=== PATIENT | female | born 1990 | race Caucasian/White ===

== ENCOUNTER 2017-06-13 23:21 | Inpatient (IN) | payer OTHER, MEDICAID ==
[~2017-06-13] VITALS: Ht 165.1 cm; Wt 125.6 kg
[2017-06-13 23:21] VITALS: BP_SYST 147
[2017-06-13] MEDS ORDERED: NACL 0.9% 1,000 ML IV ONE (23:47)
[2017-06-13 23:59] LABS: BILIRUBIN,URINE 2+ (NEGATIVE); BLOOD, URINE NEGATIVE (NEGATIVE); CLARITY/URINE SL HAZY (CLEAR); GLUCOSE,URINE NEGATIVE (NEGATIVE); KETONES,URINE 2+ (NEGATIVE); LEUKOCYTE ESTERASE ,URINE NEGATIVE (NEGATIVE); NITRITE, URINE NEGATIVE (NEGATIVE); PROTEIN URINE 1+ (NEGATIVE)
[2017-06-14] MEDS ORDERED: HYDROmorphone 1 MG INJ. 1 MG/ML AMPUL IVP ONE
[2017-06-14 00:06] LABS: COLOR,URINE YELLOW (YELLOW)
[2017-06-14 00:09] LABS: BACTERIA,URINE FEW /HPF (None Seen); MUCUS,URINE 2+ /LPF (None Seen); RBC,URINE 0-3 /HPF (0-3); WBC,URINE 0-3 /HPF (0-3)
[2017-06-14 00:34] LABS: BASOPHILS # (AUTO) 0.2 K/uL (0.0-0.2); BASOPHILS % (AUTO) 1.3 % (0.0-2.0); HEMATOCRIT 41.3 % (36-48); HEMOGLOBIN 13.5 g/dL (12.0-16.0); LYMPHOCYTES # (AUTO) 1.4 K/uL (1.0-5.5); LYMPHOCYTES % (AUTO) 8.2 % (20.5-51.5); MEAN CORPUSCULAR HEMOGLOBIN 27 pg (27-31); MEAN CORPUSCULAR HGB CONC 33 % (32-36); MEAN CORPUSCULAR VOLUME 83 fL (79.0-98.0); MONOCYTES # (AUTO) 0.7 K/uL (0.0-1.0); MONOCYTES % (AUTO) 4.2 % (1.7-9.3); NEUTROPHILS # (AUTO) 15.2 K/uL (1.8-7.7); NEUTROPHILS % (AUTO) 86.3 % (40.0-70.0); PLATELET COUNT (AUTO) 251 K/uL (130-430); RED BLOOD CELL COUNT(AUTO) 4.99 MIL/uL (4.2-6.2); WHITE BLOOD COUNT (AUTO) 17.5 K/uL (4.8-10.8)
[2017-06-14 00:37] LABS: CREATININE 0.83 mg/dL (0.55-1.30); POTASSIUM 3.1 mmol/L (3.5-5.1)
[2017-06-14 00:41] LABS: PROTHROMBIN TIME 11.2 SECS (9.5-12.5)
[2017-06-14 00:57] LABS: ALBUMIN 3.6 g/dL (3.4-4.8); TOTAL BILIRUBIN 2.7 mg/dL (0.0-1.0); TOTAL PROTEIN, SERUM 8.3 g/dL (6.4-8.3)
[2017-06-14] MEDS ORDERED: SERT50TA12 PO (01:23)
[2017-06-14] MEDS ORDERED: DULO20CA PO (01:23)
[2017-06-14] MEDS ORDERED: BUPR75TA20 PO (01:23)
[2017-06-14] MEDS ORDERED: ACETAMINOPHEN 650 MG SUPP.RECT RC PRN (01:45)
[2017-06-14 02:00] VITALS: BP_SYST 135
[2017-06-14 02:23] VITALS: BP_SYST 137
[2017-06-14] MEDS: HYDROmorphone 1 MG INJ. 1 MG/ML AMPUL IVP PRN ×4 (03:16→20:03)
[2017-06-14] MEDS: KCL 20 mEq in NS 1000 mL 1,000 ML IV SCH ×3 (03:17→17:45)
[2017-06-14] MEDS: ONDANSETRON HCL 4 MG/2 ML VIAL IVP PRN ×2 (03:20→20:29)
[2017-06-14 06:41] LABS: CALCIUM 7.2 mg/dL (8.4-11.0); CREATININE 0.7 mg/dL (0.55-1.30); POTASSIUM 3.4 mmol/L (3.5-5.1)
[2017-06-14 06:46] LABS: ALBUMIN 3.3 g/dL (3.4-4.8); TOTAL BILIRUBIN 2.4 mg/dL (0.0-1.0); TOTAL PROTEIN, SERUM 7.7 g/dL (6.4-8.3)
[2017-06-14] MEDS ORDERED: POTASSIUM CHLORIDE 30 MEQ in NS 250 ML IV ONE (09:00)
[2017-06-14] MEDS: PANTOPRAZOLE SODIUM 40 MG/VIAL (PROTONIX) IVP SCH (09:36)
[2017-06-14 12:26] VITALS: BP_SYST 153
[2017-06-14] MEDS ORDERED: LR 1,000 ML IV.SOLN IV ONE (12:45)
[2017-06-14] MEDS ORDERED: MIDAZOLAM HCL 5 MG/5 ML VIAL IVP ONE (12:45)
[2017-06-14] MEDS ORDERED: GLYCOPYRROLATE 0.2 MG/ML VIAL IJ ONE (12:45)
[2017-06-14] MEDS ORDERED: BUPIVACAINE /EPINEPHRINE/PF 0.5% 30 ML VIAL INJ ONE (12:45)
[2017-06-14] MEDS ORDERED: PROPOFOL 200MG/ 20ML VIAL (DIPRIVAN) IV ONE (12:45)
[2017-06-14] MEDS ORDERED: SUCCINYLCHOLINE CHLORIDE 20 MG/ML(QUELICIN) IVP ONE (12:45)
[2017-06-14] MEDS ORDERED: NS IRRIG SOLN 1000 ML IR ONE (12:45)
[2017-06-14] MEDS ORDERED: NS 1000 ML BAG IV ONE (12:45)
[2017-06-14] MEDS ORDERED: ONDANSETRON HCL 4 MG/2 ML VIAL IVP ONE ×2 (12:45)
[2017-06-14] MEDS ORDERED: fentaNYL CITRATE 250 MCG/5 ML AMP IV ONE (12:45)
[2017-06-14] MEDS ORDERED: SEVOFLURANE 15 MIN GAS INH ONE (12:45)
[2017-06-14] MEDS ORDERED: BUPR-120 PO (13:35)
[2017-06-14] MEDS ORDERED: SERT-131 PO (13:35)
[2017-06-14] MEDS ORDERED: LOXA10CA PO (13:35)
[2017-06-14 14:47] LABS: CHOLESTEROL 249 mg/dL (<200); HDL CHOLESTEROL 55 mg/dL (>55); LDL CHOLESTEROL 168 mg/dL (<100); TRIGLYCERIDES 64 mg/dL (30-150)
[2017-06-14 16:46] VITALS: BP_SYST 146
[2017-06-14] MEDS: KCL 20 mEq in D5/0.45NS 1000mL 1,000 ML IV SCH (20:01)
[2017-06-14 20:03] VITALS: BP_SYST 115
[2017-06-14] MEDS ORDERED: cefTRIAXone 1 GM IVPB PREMIX 50 ML IV ONE ×2 (22:00→22:09)
[2017-06-15 00:05] VITALS: BP_SYST 135
[2017-06-15 01:52] VITALS: BP_SYST 135
[2017-06-15] MEDS: LORazepam 2 MG/ML VIAL IVP PRN (03:03)
[2017-06-15 03:09] VITALS: BP_SYST 134
[2017-06-15 05:26] LABS: HCG,QUAL RESULT NEGATIVE (NEGATIVE)
[2017-06-15] MEDS: HYDROmorphone 1 MG INJ. 1 MG/ML AMPUL IVP PRN ×3 (07:00→20:32)
[2017-06-15 07:13] LABS: ALBUMIN 2.7 g/dL (3.4-4.8); BILIRUBIN,DIRECT 0.6 mg/dL (0.0-0.3); CALCIUM 7.1 mg/dL (8.4-11.0); CREATININE 0.72 mg/dL (0.55-1.30); POTASSIUM 3.5 mmol/L (3.5-5.1); TOTAL PROTEIN, SERUM 7.2 g/dL (6.4-8.3)
[2017-06-15 07:45] LABS: HEMOGLOBIN 12.3 g/dL (12.0-16.0); MEAN CORPUSCULAR HEMOGLOBIN 28 pg (27-31); MEAN CORPUSCULAR HGB CONC 33 % (32-36); MEAN CORPUSCULAR VOLUME 83 fL (79.0-98.0); PLATELET COUNT (AUTO) 213 K/uL (130-430); RED BLOOD CELL COUNT(AUTO) 4.46 MIL/uL (4.2-6.2); RED CELL DISTRIBUTION WIDTH 14.5 % (9.0-15.0); WHITE BLOOD COUNT (AUTO) 27.9 K/uL (4.8-10.8)
[2017-06-15] MEDS: PANTOPRAZOLE SODIUM 40 MG/VIAL (PROTONIX) IVP SCH (09:03)
[2017-06-15] MEDS: ONDANSETRON HCL 4 MG/2 ML VIAL IVP PRN ×2 (09:03→20:31)
[2017-06-15 09:16] LABS: ATYPICAL LYMPHOCYTES % 6 % (0-0); BAND % (MANUAL) 19 % (0-6); BASOPHILS % (MANUAL) 0 % (0-2); EOSINOPHILS % (MANUAL) 0 % (0-7); LYMPHOCYTES % (MANUAL) 5 % (20-46); METAMYELOCYTES % 1 % (0-0); MONOCYTES % (MANUAL) 4 % (0-11)
[2017-06-15] MEDS: KCL 20 mEq in NS 1000 mL 1,000 ML IV SCH ×4 (09:45→19:33)
[2017-06-15 11:37] VITALS: BP_SYST 130
[2017-06-15 16:09] VITALS: BP_SYST 140
[2017-06-15] MEDS: KCL 20 mEq in D5/0.45NS 1000mL 1,000 ML IV SCH ×2 (18:37→18:44)
[2017-06-15 19:50] VITALS: BP_SYST 137
[2017-06-15] MEDS: cefTRIAXone 1 GM in D5W 50 ML IV SCH (21:39)
[2017-06-16] MEDS: HYDROmorphone 1 MG INJ. 1 MG/ML AMPUL IVP PRN ×5 (00:35→23:38)
[2017-06-16] MEDS: ONDANSETRON HCL 4 MG/2 ML VIAL IVP PRN (03:04)
[2017-06-16] MEDS: KCL 20 mEq in NS 1000 mL 1,000 ML IV SCH ×2 (06:32→16:50)
[2017-06-16 06:56] LABS: BASOPHILS # (AUTO) 0.6 K/uL (0.0-0.2); BASOPHILS % (AUTO) 2.5 % (0.0-2.0); EOSINOPHILS % (AUTO) 0.1 % (0.0-4.0); HEMATOCRIT 33.6 % (36-48); HEMOGLOBIN 11.3 g/dL (12.0-16.0); LYMPHOCYTES # (AUTO) 1.3 K/uL (1.0-5.5); LYMPHOCYTES % (AUTO) 5.2 % (20.5-51.5); MEAN CORPUSCULAR HEMOGLOBIN 28 pg (27-31); MEAN CORPUSCULAR HGB CONC 34 % (32-36); MEAN CORPUSCULAR VOLUME 84 fL (79.0-98.0); MONOCYTES # (AUTO) 1.2 K/uL (0.0-1.0); MONOCYTES % (AUTO) 4.9 % (1.7-9.3); NEUTROPHILS # (AUTO) 22.3 K/uL (1.8-7.7); NEUTROPHILS % (AUTO) 87.3 % (40.0-70.0); PLATELET COUNT (AUTO) 186 K/uL (130-430); RED BLOOD CELL COUNT(AUTO) 4.01 MIL/uL (4.2-6.2); RED CELL DISTRIBUTION WIDTH 14.8 % (9.0-15.0); WHITE BLOOD COUNT (AUTO) 25.4 K/uL (4.8-10.8)
[2017-06-16 07:13] LABS: ALBUMIN 2.4 g/dL (3.4-4.8); CREATININE 0.67 mg/dL (0.55-1.30); POTASSIUM 3.5 mmol/L (3.5-5.1); TOTAL BILIRUBIN 0.6 mg/dL (0.0-1.0); TOTAL PROTEIN, SERUM 6.8 g/dL (6.4-8.3)
[2017-06-16 07:37] LABS: CALCIUM 6.9 mg/dL (8.4-11.0)
[2017-06-16 08:00] VITALS: BP_SYST 136
[2017-06-16] MEDS: PANTOPRAZOLE SODIUM 40 MG/VIAL (PROTONIX) IVP SCH (08:55)
[2017-06-16 11:55] VITALS: BP_SYST 120
[2017-06-16 16:00] VITALS: BP_SYST 125
[2017-06-16 20:00] VITALS: BP_SYST 134
[2017-06-16] MEDS: KCL 20 mEq in D5/0.45NS 1000mL 1,000 ML IV SCH (20:42)
[2017-06-16] MEDS: cefTRIAXone 1 GM in D5W 50 ML IV SCH (20:43)
[2017-06-16] MEDS: LORazepam 2 MG/ML VIAL IVP PRN (21:41)
[2017-06-17] VITALS (7 sets, daily range): BP systolic 130–150
[2017-06-17] MEDS: KCL 20 mEq in NS 1000 mL 1,000 ML IV SCH (03:04)
[2017-06-17 07:14] LABS: BASOPHILS # (AUTO) 0.1 K/uL (0.0-0.2); BASOPHILS % (AUTO) 0.4 % (0.0-2.0); EOSINOPHILS # (AUTO) 0.1 K/uL (0.0-0.4); EOSINOPHILS % (AUTO) 0.5 % (0.0-4.0); HEMATOCRIT 32.1 % (36-48); HEMOGLOBIN 10.7 g/dL (12.0-16.0); LYMPHOCYTES # (AUTO) 1.3 K/uL (1.0-5.5); LYMPHOCYTES % (AUTO) 6.3 % (20.5-51.5); MEAN CORPUSCULAR HEMOGLOBIN 28 pg (27-31); MEAN CORPUSCULAR HGB CONC 33 % (32-36); MEAN CORPUSCULAR VOLUME 83 fL (79.0-98.0); MONOCYTES # (AUTO) 1.2 K/uL (0.0-1.0); NEUTROPHILS # (AUTO) 17.7 K/uL (1.8-7.7); NEUTROPHILS % (AUTO) 86.8 % (40.0-70.0); PLATELET COUNT (AUTO) 184 K/uL (130-430); RED BLOOD CELL COUNT(AUTO) 3.85 MIL/uL (4.2-6.2); RED CELL DISTRIBUTION WIDTH 14.9 % (9.0-15.0); WHITE BLOOD COUNT (AUTO) 20.4 K/uL (4.8-10.8)
[2017-06-17 08:01] LABS: ALBUMIN 2.3 g/dL (3.4-4.8); BILIRUBIN,DIRECT 0.3 mg/dL (0.0-0.3); TOTAL BILIRUBIN 0.5 mg/dL (0.0-1.0); TOTAL PROTEIN, SERUM 6.8 g/dL (6.4-8.3)
[2017-06-17] MEDS: PANTOPRAZOLE SODIUM 40 MG/VIAL (PROTONIX) IVP SCH (08:20)
[2017-06-17] MEDS ORDERED: LR 1,000 ML IV SCH (13:26)
[2017-06-17] MEDS ORDERED: METOCLOPRAMIDE HCL 10 MG/2 ML VIAL IVP PRN (13:30)
[2017-06-17] MEDS ORDERED: MORPHINE 2 MG/ML INJ. SYRINGE IVP PRN ×3 (13:30)
[2017-06-17] MEDS: MORPHINE 4 MG/ML INJ. SYRINGE ONE ×2 (14:30→14:43)
[2017-06-17] MEDS: LR 1,000 ML IV SCH (20:52)
[2017-06-17] MEDS: cefTRIAXone 1 GM in D5W 50 ML IV SCH (20:52)
[2017-06-18 00:16] VITALS: BP_SYST 137
[2017-06-18 04:23] VITALS: BP_SYST 148
[2017-06-18] MEDS: LR 1,000 ML IV SCH ×2 (05:53→15:48)
[2017-06-18 07:05] LABS: BASOPHILS # (AUTO) 0.1 K/uL (0.0-0.2); BASOPHILS % (AUTO) 0.3 % (0.0-2.0); EOSINOPHILS # (AUTO) 0.1 K/uL (0.0-0.4); EOSINOPHILS % (AUTO) 0.5 % (0.0-4.0); HEMATOCRIT 32.3 % (36-48); HEMOGLOBIN 10.8 g/dL (12.0-16.0); LYMPHOCYTES # (AUTO) 1.3 K/uL (1.0-5.5); MEAN CORPUSCULAR HEMOGLOBIN 28 pg (27-31); MEAN CORPUSCULAR HGB CONC 34 % (32-36); MEAN CORPUSCULAR VOLUME 84 fL (79.0-98.0); MONOCYTES # (AUTO) 1.2 K/uL (0.0-1.0); MONOCYTES % (AUTO) 6.4 % (1.7-9.3); NEUTROPHILS # (AUTO) 15.5 K/uL (1.8-7.7); NEUTROPHILS % (AUTO) 85.8 % (40.0-70.0); PLATELET COUNT (AUTO) 214 K/uL (130-430); RED BLOOD CELL COUNT(AUTO) 3.86 MIL/uL (4.2-6.2); RED CELL DISTRIBUTION WIDTH 14.9 % (9.0-15.0); WHITE BLOOD COUNT (AUTO) 18.2 K/uL (4.8-10.8)
[2017-06-18 07:31] LABS: ALBUMIN 2.2 g/dL (3.4-4.8); CALCIUM 7.6 mg/dL (8.4-11.0); CREATININE 0.58 mg/dL (0.55-1.30); POTASSIUM 3.6 mmol/L (3.5-5.1); TOTAL BILIRUBIN 0.6 mg/dL (0.0-1.0); TOTAL PROTEIN, SERUM 6.7 g/dL (6.4-8.3)
[2017-06-18 09:23] VITALS: BP_SYST 118
[2017-06-18] MEDS: PANTOPRAZOLE SODIUM 40 MG/VIAL (PROTONIX) IVP SCH (09:23)
[2017-06-18 12:14] VITALS: BP_SYST 130
[2017-06-18] MEDS ORDERED: IBUPROFEN 600 MG TABLET PO PRN (14:00)
[2017-06-18 16:41] VITALS: BP_SYST 136
[2017-06-18 19:30] VITALS: BP_SYST 126; BP_SYST 136
[2017-06-18] MEDS: cefTRIAXone 1 GM in D5W 50 ML IV SCH (20:49)
[2017-06-19 00:03] VITALS: BP_SYST 129
[2017-06-19] MEDS: LR 1,000 ML IV SCH ×2 (00:30→09:43)
[2017-06-19 07:08] LABS: HEMOGLOBIN 10.6 g/dL (12.0-16.0); RED CELL DISTRIBUTION WIDTH 14.6 % (9.0-15.0)
[2017-06-19 07:21] LABS: HEMATOCRIT 31.3 % (36-48); MEAN CORPUSCULAR HEMOGLOBIN 28 pg (27-31); MEAN CORPUSCULAR HGB CONC 34 % (32-36); MEAN CORPUSCULAR VOLUME 83 fL (79.0-98.0); PLATELET COUNT (AUTO) 198 K/uL (130-430); RED BLOOD CELL COUNT(AUTO) 3.77 MIL/uL (4.2-6.2); WHITE BLOOD COUNT (AUTO) 16.4 K/uL (4.8-10.8)
[2017-06-19 07:24] LABS: ALBUMIN 2.2 g/dL (3.4-4.8); CALCIUM 7.4 mg/dL (8.4-11.0); CREATININE 0.66 mg/dL (0.55-1.30); POTASSIUM 3.2 mmol/L (3.5-5.1); TOTAL BILIRUBIN 0.5 mg/dL (0.0-1.0); TOTAL PROTEIN, SERUM 6.7 g/dL (6.4-8.3)
[2017-06-19 08:00] VITALS: BP_SYST 142
[2017-06-19 08:25] LABS: BAND % (MANUAL) 5 % (0-6); BASOPHILS % (MANUAL) 0 % (0-2); EOSINOPHILS % (MANUAL) 2 % (0-7); LYMPHOCYTES % (MANUAL) 11 % (20-46); MONOCYTES % (MANUAL) 6 % (0-11)
[2017-06-19] MEDS: PANTOPRAZOLE SODIUM 40 MG/VIAL (PROTONIX) IVP SCH (09:42)
[2017-06-19 12:28] VITALS: BP_SYST 142
[2017-06-19] MEDS ORDERED: POTASSIUM CHLORIDE 20 MEQ TAB.PRT.SR PO ONE (12:30)
[2017-06-19 13:24] VITALS: BP_SYST 142
== END 2017-06-19 14:45 | disposition home or self-care (01) | DRG 853 ==
LOC: SED 23:21 → STU 06-14 01:45 → SMU 06-18 15:43
PROVIDERS: ADMIT Internal Medicine
PROC: 0FT44ZZ Resection of Gallbladder, Percutaneous Endoscopic Approach (ICD-10-PCS; principal; 2017-06-17 12:00)
DX: A41.9 Sepsis, unspecified organism (principal); K85.10 Biliary acute pancreatitis without necrosis or infection; K65.8 Other peritonitis; Z68.42 Body mass index [BMI] 45.0-49.9, adult; R65.10 Systemic inflammatory response syndrome (SIRS) of non-infectious origin without acute organ dysfunction; K80.20 Calculus of gallbladder without cholecystitis without obstruction; E87.6 Hypokalemia; F70 Mild intellectual disabilities; F32.9 Major depressive disorder, single episode, unspecified; E66.9 Obesity, unspecified; E78.5 Hyperlipidemia, unspecified; Z79.899 Other long term (current) drug therapy; I34.0 Nonrheumatic mitral (valve) insufficiency
CPT/HCPCS: 36415; 74181; 76705; 78226; 80048; 80053; 80061; 80076; 81000-TC; 81025; 82150-TC; 82248-TC; 83605; 83690-TC; 83735-TC; 84703; 85007; 85025; 85027; 85610-TC; 85730-TC; 87040-TC; 87070; 87070-TC; 87075-TC; 87081; 87086; 88304; 93005; 96361; 96374; 96375; 99285; A9537; C1727; C9113; J0330; J0696; J1170; J2060; J2250; J2270; J2405; J2704; J3010; J3480; J3490; J7030; J7050; J7060; J7120